=== PATIENT | female | born 1960 ===

== ENCOUNTER → 2023-04-28 09:38 | Outpatient (CLI) | payer OTHER, SELFPAY ==
--- NOTE | ~2023-04-28 | MR_ITS ---
EXAMINATION: MR shoulder LT wo con DATE: 04/28/2023 10:33 INDICATION: generalized left shoulder pain down arm w/ left hand . TECHNIQUE: Magnetic resonance imaging (MRI) of the left shoulder was performed without intravenous co ntrast. Sequences included axial PD-weighted FS FSE, coronal oblique PD-weighted FS FSE and T2-weight ed FS FSE, and sagittal oblique T2-weighted FS FSE and T1-weighted FSE. COMPARISON: None. FINDINGS: Coracoacromial arch: Mild inferior acromial clavicular osteophytosis. Minimal acromial tip enthesopathy. Mild anterior arlyn nsloping of the type I acromion. No subacromial or subcoracoid narrowing. Rotator cuff: Mild tendinopathy in the distal supraspinatus. No cuff tear. The supraspinatus, infraspinatus, teres minor, and subscapularis are intact. Biceps tendon and glenoid labrum: Long head of biceps tendon and glenoid labrum are intact. Fluid: Minimal subacromial subdeltoid fluid. Small volume glenohumeral joint fluid. Bones/cartilage: Mild diffuse glenohumeral cartilage thinning. Mild AC joint hypertrophy. Unremarkable bone marrow. IMPRESSION: Supraspinatus tendinopathy. Mild osseous outlet compromise with mild subacromial subdeltoid bursitis. Mild polyarticular osteoarthritis. Small volume glenohumeral joint effusion. Reviewed, dictated and finalized at [facility]
== END ==
PROVIDERS: PCP Nurse Practitioner; Visit Provider Nurse Practitioner
DX: M25.612 Stiffness of left shoulder, not elsewhere classified (principal); M19.012 Primary osteoarthritis, left shoulder; M25.412 Effusion, left shoulder
CPT/HCPCS: 73221

== ENCOUNTER 2023-10-29 11:07 | Outpatient (CLI) | payer OTHER, SELFPAY ==
--- NOTE | ~2023-10-29 | XR_ITS ---
Right Shoulder Technique: AP and scapular Y views were obtained. Clinical History: Pain Findings: No fracture or dislocation is seen. Osseous alignment is anatomic. The glenohumeral and acr omioclavicular joint spaces are preserved. Soft tissues are unremarkable. Impression: Unremarkable right shoulder radiographs. Reviewed, dictated and finalized at [facility]. Impression: Unremarkable right shoulder radiographs.
== END 2023-10-29 11:08 ==
DX: M25.511 Pain in right shoulder (principal)
CPT/HCPCS: 73030